=== PATIENT | female | born 1950 | race Caucasian/White ===

== ENCOUNTER 2021-09-06 15:19 | Outpatient (REF) | payer MEDICARE, SELFPAY ==
--- NOTE | ~2021-09-06 | US_ITS ---
EXAMINATION: US RETROPERITONEAL LIMITED (RENAL ONLY) CLINICAL INFORMATION: Calculus of kidney. COMPARISON: Renal ultrasound 01/09/2017. TECHNIQUE: Real-time imaging of the kidneys. FINDINGS: RIGHT KIDNEY: 12.0 x 4.2 x 6.6 cm (SAG x AP x TRV). The kidney is normal in size, contour, and echogenicity. Renal cortical thickness is normal. No calculi or focal parenchymal lesions. No hydronephrosis. LEFT KIDNEY: 12.4 x 5.6 x 6.4 cm (SAG x AP x TRV). The kidney is normal in size, contour, and echogenicity. Renal cortical thickness is normal. No calculi or focal parenchymal lesions. No hydronephrosis. US/US renal BI IMPRESSION: Normal renal ultrasound..
== END 2021-09-06 15:20 | disposition home or self-care (01) ==
LOC: HO.US 15:19
PROVIDERS: PCP Internal Medicine
DX: N20.0 Calculus of kidney (principal)
CPT/HCPCS: 76775

== ENCOUNTER → 2021-09-17 11:04 | Outpatient (BNVA) | payer MEDICARE, SELFPAY | PROVIDERS: PCP Internal Medicine | CPT/HCPCS: Q3014 ==

== ENCOUNTER 2022-08-27 14:51 | Outpatient (REF) | payer MEDICARE, SELFPAY ==
--- NOTE | ~2022-08-27 | US_ITS ---
EXAMINATION: US RETROPERITONEAL LIMITED (RENAL ONLY) CLINICAL INFORMATION: Calculus of kidney. COMPARISON: Ultrasound retroperitoneal limited (renal only) 09/06/2021 and 01/09/2017. TECHNIQUE: Real-time imaging of the kidneys. FINDINGS: RIGHT KIDNEY: 13.0 x 4.5 x 5.0 cm (SAG x AP x TRV). The kidney is normal in size, contour, and echogenicity. Renal cortical thickness is normal. No calculi or focal parenchymal lesions. No hydronephrosis. There is mild pelvic fullness. LEFT KIDNEY: 11.1 x 6.0 x 5.8 cm (SAG x AP x TRV). The kidney is normal in size, contour, and echogenicity. Renal cortical thickness is normal. No renal calculi or focal parenchymal lesions. BLADDER: Bilateral ureteral jets are demonstrated. US/US renal BI IMPRESSION: There is mild pelvic fullness.
== END 2022-08-27 14:52 | disposition home or self-care (01) ==
LOC: HO.US 14:51
DX: N20.0 Calculus of kidney (principal)
CPT/HCPCS: 76775

== ENCOUNTER 2023-08-31 09:57 | Outpatient (REF) | payer MEDICARE, SELFPAY ==
--- NOTE | ~2023-08-31 | US_ITS ---
EXAMINATION: US RETROPERITONEAL LIMITED (RENAL ONLY) CLINICAL INFORMATION: Calculus of kidney. COMPARISON: Renal ultrasound 08/27/2022 and 09/06/2021. TECHNIQUE: Real-time imaging of the kidneys. Limited visualization due to bowel gas. FINDINGS: RIGHT KIDNEY: 13.7 x 4.1 x 7.2 cm (SAG x AP x TRV). Increased renal echogenicity is characteristic of medical renal disease. No hydronephrosis. No renal calculi. Renal cortical thickness is normal. Limited visualization. LEFT KIDNEY: 12.5 x 5.3 x 6.9 cm (SAG x AP x TRV). Increased renal echogenicity is characteristic of medical renal disease. Anechoic areas in the [id number]-of-hyakd left renal parapelvic region could represent mild pelvocaliectasis or parapelvic cysts. No renal calculi. Renal cortical thickness is normal. Limited visualization. US/US renal BI IMPRESSION: Bilateral increased renal echogenicity is characteristic of medical renal disease. Anechoic areas in the mid to lower left renal peripelvic region could represent mild pelvocaliectasis or peripelvic cysts. No renal calculi. Limited visualization. CT scan recommended for further evaluation.
== END 2023-08-31 09:58 | disposition home or self-care (01) ==
LOC: HO.HMGCX 09:57
PROVIDERS: PCP Internal Medicine; Visit Provider Urology
DX: N20.0 Calculus of kidney (principal)
CPT/HCPCS: 76775

== ENCOUNTER 2023-10-16 10:46 | Outpatient (AMB) | payer MEDICARE, SELFPAY ==
--- NOTE | 2023-10-16 11:01 | A.OFFVIS_ITS ---
Intake Intake Visit Reasons: US Follow Up(set) Allergies clarithromycin [Biaxin] Allergy (Unknown, Verified 09/17/21 11:09) unknown metronidazole Allergy (Unknown, Verified 09/17/21 11:09) unknown sulfur Allergy (Unknown, Verified 09/17/21 11:09) unknown Ceftin Allergy (Unknown, Uncoded 09/17/21 11:09) unknown Erythromycin Allergy (Unknown, Uncoded 09/17/21 11:09) unknown nuts, dust, mold, pollen, cats Allergy (Unknown, Uncoded 09/17/21 11:09) Unknown scents, deodorants Allergy (Unknown, Uncoded 09/17/21 11:09) Unknown HPI HPI Comments History of Present Illness Details Vi is a pleasant female. She is a patient of Dr. Haddad. She seen for the following urologic conditions - nephrolithiasis Telemedicine Evaluation 15 min Consultation [facility] Video attempted Nephrolithiasis Prior occurrence Last recurrence 2018 Keeps up fluid intake with lemon water Additionally vitamin B6 daily Imaging - 09/07 renal ultrasound no evidence nep hrolithiasis Therapeutic plan continue surveillance [facility] Medical History Hyperoxaluria Nephrolithiasis Review of Systems Const All systems reviewed & are unremarkable except as noted in HPI and below Reports no additional complaints Resp Reports no additional complaints GI Reports no additional complaints Reports as per HPI Musc Reports no additional complaints Physical Exam Telemedicine evaluation Appropriate responses Regular breathing rate and rhythm HEENT Head: Yes normal to inspection Ears: hearing grossly normal bilaterally Eyes General: appearance normal, both eyes and all related structures Neck Neck: Yes normal visual inspection Chest Chest palpation & inspection: normal inspection of the chest Resp Effort & Inspection: normal respiratory effort and able to speak in complete sentences Assessment & Plan Assessment & Plan (1) Nephrolithiasis: Code(s): N20.0 - Calculus of kidney Plan 12 month follow-up renal ultrasound Orders: Orders US renal BI 364 Days N20.0 - Calculus of kidney Patient Instructions: Imaging studies, laboratory and physical exam results were discussed and reviewed in detail. No major barriers to patient understanding were identified. An opportunity to ask questions regarding the treatment plan was provided. All questions were answered. The patient expressed understanding and agreement with the above treatment plan. The patient is aware they should contact our office by phone for worsening of their current condition or the appearance of new urologic symptoms. Compliance is encouraged with any medications and followup testing that is ordered. It is a privilege to participate in the urologic care of your patient. If you have any questions or concerns regarding treatment for the above conditions, or other urologic issues, please do not hesitate to contact me. The office telephone contact is [phone]. This note is constructed using voice recognition software. While every effort has been made to ensure accuracy emergency response technician errors may have been included. Yours sincerely, Dr Johnny Green MD, [facility] - Urology Providers of Expert, Compassionate Care for the Genitourinary System Telehealth Telehealth Location of provider rendering services: practice address Location of patient: address on file Patient Identification confirmed using: Name, : Yes Telehealth method: video Patient verbally consented to treatment: Yes Patient verbally consented to billing insurance company: Yes Patient informed of any privacy concerns related to visit: Yes Coding Level of Care Code Tele Est Pt Level 4 (19553) Diagnoses Nephrolithiasis N20.0
== END 2023-10-16 11:39 | disposition home or self-care (01) ==
LOC: HO.HUSH 10:46
PROVIDERS: PCP Internal Medicine; Visit Provider Urology
DX: N20.0 Calculus of kidney (principal)
CPT/HCPCS: 99213

== ENCOUNTER → 2023-10-16 10:46 | Outpatient (BNVA) | payer MEDICARE, SELFPAY | PROVIDERS: PCP Internal Medicine; Visit Provider Urology ==

== ENCOUNTER 2024-10-06 10:24 | Outpatient (REF) | payer MEDICARE, SELFPAY | END 2024-10-06 10:25 | disposition home or self-care (01) | LOC: HO.HMGCX 10:24 | PROVIDERS: PCP Family Medicine; Visit Provider Urology | DX: N20.0 Calculus of kidney (principal) | CPT/HCPCS: 76775 ==

== ENCOUNTER 2024-10-19 11:07 | Outpatient (AMB) | payer MEDICARE, SELFPAY ==
--- NOTE | 2024-10-19 11:14 | MHC.OFFVIS ---
Intake Visit Reasons: 1y/US(set) Intake Note: Patient is present for 1Y/US Urology Medication:VITAMIN B6 Antibiotic Allergy:CLARITHROMYCIN,SULFA,ERYTHROMYCIN Blood Thinner:NONE Flange Machine Operator Required: No Allergies clarithromycin [Biaxin] Allergy (Unknown, Verified 10/19/24 11:15) unknown metronidazole Allergy (Unknown, Verified 10/19/24 11:15) unknown sulfur Allergy (Unknown, Verified 10/19/24 11:15) unknown Ceftin Allergy (Unknown, Uncoded 10/19/24 11:15) unknown Erythromycin Allergy (Unknown, Uncoded 10/19/24 11:15) unknown nuts, dust, mold, pollen, cats Allergy (Unknown, Uncoded 10/19/24 11:15) Unknown scents, deodorants Allergy (Unknown, Uncoded 10/19/24 11:15) Unknown HPI Comments Details: Vi is a pleasant female. She is a patient of Dr. Haddad. She seen for the following urologic conditions - nephrolithiasis Ultrasound shows no stones Keep up with lemon water and vitamin B6 Imaging 12 months Nephrolithiasis Prior occurrence Last recurrence 2018 Keeps up fluid intake with lemon water Additionally vitamin B6 daily Imaging - 09/07 renal ultrasound no evidence nephrolithiasis - 09/08 renal ultrasound no evidence of nephrolithiasis Therapeutic plan continue surveillance [facility] Medical History Hyperoxaluria Nephrolithiasis Review of Systems Const Denies chills and Denies fever(s) Card Reports no additional complaints and Denies syncope Resp Denies cough GI Denies abdominal pain and Denies heartburn Reports as per HPI and Denies change in libido Neuro Denies syncope Psych Denies change in libido Endo Denies change in libido Physical Exam Const General: cooperative, healthy appearing, comfortable and no acute distress Orientation/consciousness: patient oriented x3 HEENT Face and sinus: Yes normal facial exam Mouth: moist mucous membranes Neck Neck: Yes normal visual inspection, Yes full ROM and Yes trachea midline Chest Chest palpation & inspection: normal inspection of the chest Resp Effort & Inspection: normal respiratory effort, able to speak in complete sentences and no respiratory distress GI Inspection: Yes normal to inspection Back/Spine/Pelvis Cervical Spine: normal cervical lordosis Thoracic/Lumbar Spine: thoracic and lumbar spine normal to inspection Skin General skin exam: no rashes or lesions noted Neuro General: patient oriented x3, gait normal, tone normal and moves all extremities Extrem General: Yes normal to inspection and Yes capillary refill normal Assessment & Plan Assessment & Plan (1) Nephrolithiasis: Code(s): N20.0 - Calculus of kidney Category: Medical Plan Twelve month follow-up imaging Orders: Orders US renal BI 12 Months N20.0 - Calculus of kidney Patient Instructions: Imaging studies, laboratory and physical exam results were discussed and reviewed in detail. No major barriers to patient understanding were identified. An opportunity to ask questions regarding the treatment plan was provided. All questions were answered. The patient expressed understanding and agreement with the above treatment plan. The patient is aware they should contact our office by phone for worsening of their current condition or the appearance of new urologic symptoms. Compliance is encouraged with any medications and followup testing that is ordered. It is a privilege to participate in the urologic care of your patient. If you have any questions or concerns regarding treatment for the above conditions, or other urologic issues, please do not hesitate to contact me. The office telephone contact is [phone]. This note is constructed using voice recognition software. While every effort has been made to ensure accuracy management coordinator errors may have been included. Yours sincerely, Dr Johnny Green MD, [place] - Urology Providers of Expert, Compassionate Care for the Genitourinary System Coding Level of Care Code Est Pt Level 4 (57780) Diagnoses Nephrolithiasis N20.0
== END 2024-10-19 14:29 | disposition home or self-care (01) ==
PROVIDERS: PCP Internal Medicine; Visit Provider Urology
DX: N20.0 Calculus of kidney (principal)
CPT/HCPCS: 99214

== ENCOUNTER → 2024-10-19 11:07 | Outpatient (BNVA) | payer MEDICARE, SELFPAY | PROVIDERS: PCP Internal Medicine; Visit Provider Urology | DX: N20.0 Calculus of kidney (principal) | CPT/HCPCS: 99212 ==